=== PATIENT | female | born 1975 | race African-American/Black ===

== ENCOUNTER 2017-12-05 14:20 | Observation (INO) | payer OTHER ==
[2017-12-05] MEDS ORDERED: Morphine 4 MG/ML VIAL IVP STA ×2 (14:38→16:30)
[2017-12-05] MEDS ORDERED: Sodium Chloride 0.9% 1,000 ML IV STA (14:39)
[2017-12-05] MEDS ORDERED: Morphine 4 MG/ML VIAL ONE ×2 (14:50→17:07)
--- NOTE | 2017-12-05 15:25 | ED PDOC ---
HPI: Back Time Seen by Provider: 12/05/17 14:31 Chief Complaint (Nursing): Back Pain Chief Complaint (Provider): Back Pain History Per: Patient History/Exam Limitations: no limitations Current Symptoms Are (Timing): Still Present Quality Of Discomfort: Sharp (and shooting) Additional Complaint(s): 42 y/o female presents to the ED complaining of severe back pain from herniated disc from past 2 months, which has been treated with Tylenol. But since last 3 days she has cough and last night she coughed very hard and pain became worse. Notes that the pain is in the lower back radiating to the buttock and legs and is sharp and shooting. Reports using muscle relaxer and Tylenol without relief. States that her back doctor was going to do epidural tomorrow but she couldnt wait. She is unable to walk or get out of bed because of pain. Denies urinary or bowel incontinence, numbness or weakness in legs, fever or any further medical complaints. PMD: Sajan Mcdaniel MD Past Medical History Reviewed: Historical Data, Nursing Documentation, Vital Signs Vital Signs: Last Vital Signs Temp 98.0 F 12/05/17 14:23 Pulse 77 12/05/17 14:23 Resp 20 12/05/17 14:23 BP 116/88 12/05/17 14:23 Pulse Ox 96 12/05/17 14:23 - Medical History PMH: Hypothyroidism Other PMH: Herniated Disc - Surgical History Surgical History: (2) - Family History Family History: States: Unknown Family Hx - Social History Current smoker - smoking cessation education provided: No Alcohol: None Drugs: Denies - Allergies Allergies/Adverse Reactions: Allergies Allergy/AdvReac Type Severity Reaction Status Date / Time Penicillins Allergy RASH Verified 12/05/17 14:23 shellfish derived Allergy Verified 12/05/17 14:38 Review of Systems ROS Statement: Except As Marked, All Systems Reviewed And Found Negative (As per HPI, otherwise negative) ENT: Positive for: Other (Sore thrroat) Respiratory: Positive for: Cough Gastrointestinal: Negative for: Other (Urinary or bowel incontinence) Musculoskeletal: Positive for: Back Pain (Lower back pain) Neurological: Negative for: Weakness (in legs), Numbness (in legs) Physical Exam - Reviewed Nursing Documentation Reviewed: Yes Vital Signs Reviewed: Yes - Physical Exam Appears: Positive for: Uncomfortable, In Acute Distress Head Exam: Positive for: ATRAUMATIC, NORMOCEPHALIC Respiratory: Positive for: Normal Breath Sounds. Negative for: Accessory Muscle Use, Respiratory Distress Gastrointestinal/Abdominal: Positive for: Soft. Negative for: Tenderness, Mass , Distended, Guarding Back: Positive for: Decreased ROM, Muscle Spasm (RIGHT lumbar), Other (Unable to straighten leg at all for SLR due to pain, no saddle anesthesia) Extremity: Positive for: Other (RIGHT lower extremity: 5/5 EHL/PF/DF, light tought intact, 2+ DP/PT pulse) Lymphatic: Negative for: Adenopathy Neurologic/Psych: Positive for: Alert. Negative for: Motor/Sensory Deficits - ECG O2 Sat by Pulse Oximetry: 96 (RA) Pulse Ox Interpretation: Normal Medical Decision Making Medical Decision Making: Time: 14:38 Initial Impression: disc herniation, sciatica, acute and chronic back pain Plan: Urine Dipstick Urine Diazepam 5mg PO Ketorolac 30mg IV Morphine 4mg IVP Sodium chloride 1L IV IV Insertion (Saline lock) Scribe Attestation: Documented by Rolanda Johnson acting as a scribe for Lorene Morris MD. Scribe Attestation: All medical record entries made by the Scribe were at my direction and personally dictated by me. I have reviewed the chart and agree that the record accurately reflects my personal performance of the history, physical exam, medical decision making, and the department course for this patient. I have also personally directed, reviewed, and agree with the discharge instructions and disposition. Disposition - Clinical Impression Clinical Impression: Intractable back pain, Inability to walk Discussed With Dr.: Brian Roberts Doctor Will See Patient In The: Hospital Counseled Patient/Family Regarding: Studies Performed, Diagnosis - Disposition Disposition Time: 18:00 Condition: FAIR Forms: Danal d/b/a [employer] (Uzbek) - Pt Status Changed To: Hospital Disposition Of: Observation - POA Present On Arrival: Falls Or Trauma (risk)
[2017-12-05] MEDS ORDERED: Promethazine DM 12.5 mg-30 mg/10 ml Syrup PO STA (17:59)
[2017-12-05] MEDS ORDERED: Morphine 4 MG/ML VIAL IVP PRN (18:44)
[2017-12-05 19:02] LABS: SQUAMOUS EPITHIAL 5 /hpf (0-5); URINE BACTERIA FEW (<OCC); URINE BILIRUBIN NEGATIVE (NEGATIVE); URINE BLOOD MODERATE (NEGATIVE); URINE CLARITY CLOUDY (Clear); URINE COLOR RED (YELLOW); URINE GLUCOSE (UA) NEG (Normal); URINE LEUKOCYTE ESTERASE MOD Leu/uL (Negative); URINE NITRATE NEGATIVE (NEGATIVE); URINE PROTEIN 100 mg/dL (NEGATIVE); URINE UROBILINOGEN 0.2-1.0 mg/dL (0.2-1.0)
[2017-12-05] MEDS: Promethazine DM 12.5 mg-30 mg/10 ml Syrup PO PRN (21:44)
[2017-12-06 00:47] VITALS: PULSE 61
[2017-12-06] MEDS: Promethazine DM 12.5 mg-30 mg/10 ml Syrup PO PRN ×2 (05:17→10:44)
[2017-12-06 06:29] LABS: BASO % 0.7 % (0.0-2.0); EOS # 0.1 K/uL (0.0-0.7); EOS % 2.2 % (0.0-4.0); HEMOGLOBIN 12.8 g/dL (12.0-16.0); LYMPH # 2.4 K/uL (1.0-4.3); MEAN CELL VOLUME 88.4 fl (81.0-99.0); MEAN CORPUSCULAR HGB CONC 33.9 g/dL (33.0-37.0); MEAN PLATELET VOLUME 7.7 fl (7.2-11.7); MONO # 0.5 K/uL (0.0-0.8); MONO % 7.4 % (0.0-10.0); NEUT # 3.2 K/uL (1.8-7.0); NEUT % 51.7 % (50.0-75.0); NRBC % 0.1 % (0.0-0.0); RBC 4.27 Mil/uL (3.80-5.20); RED CELL DISTRIBUTION WIDTH 13.5 % (11.5-14.5); WHITE BLOOD COUNT 6.2 K/uL (4.8-10.8)
[2017-12-06] MEDS ORDERED: Levothyroxine 75 MCG TAB PO SCH ×2 (06:30→09:00)
[2017-12-06 06:40] LABS: ALB/GLOB RATIO 1.2 (1.0-2.1); ALBUMIN 3.5 g/dL (3.5-5.0); ALT/SGPT 31 U/L (9-52); AST/SGOT 18 U/L (14-36); BLOOD UREA NITROGEN 11 mg/dl (7-17); CALCIUM 8.7 mg/dL (8.4-10.2); GFR AFRICAN-AMERICAN > 60; GFR NON-AFRICAN AMERICAN > 60
--- NOTE | 2017-12-06 08:09 | CP.PCM.HP ---
History of Present Illness - History of Present Illness History of Present Illness: pt admitted for intractable low back pain w/ sciatica. has h/o same. being seen at [facility] and is for possible epidural today. no f/c n/v/d states cough exacerbated pain/numbness full rom of ble. distal pms intact. bw noted. mri 09/2017 Present on Admission - Present on Admission Any Indicators Present on Admission: No Review of Systems - Musculoskeletal Musculoskeletal: As Per HPI Past Patient History - Past Medical History & Family History Past Medical History?: Yes - Past Social History Smoking Status: Never Smoked - ENDOCRINE/METABOLIC Hx Hypothyroidism: Yes - MUSCULOSKELETAL/RHEUMATOLOGICAL Hx Falls: No - PSYCHIATRIC Hx Substance Use: No - ANESTHESIA Hx Anesthesia: No Meds Home Medications: Home Medication List Medication Instructions Recorded Confirmed Type Cyclobenzaprine [Flexeril] 10 mg PO TID PRN #30 tab 12/06/17 Rx Ibuprofen [Motrin Tab] 600 mg PO Q6 PRN #30 tab 12/06/17 Rx Promethazine DM [Phenergan DM 10 ml PO Q6 PRN #250 ml 12/06/17 Rx Syrup] oxyCODONE/Acetaminophen [Percocet 1 tab PO Q4 PRN #10 tab 12/06/17 Rx 5/325 mg Tab] Allergies/Adverse Reactions: Allergies Allergy/AdvReac Type Severity Reaction Status Date / Time Penicillins Allergy RASH Verified 12/05/17 14:23 shellfish derived Allergy Verified 12/05/17 14:38 Physical Exam - Constitutional Appears: Well, Non-toxic, No Acute Distress - Head Exam Head Exam: ATRAUMATIC, NORMAL INSPECTION, NORMOCEPHALIC - Eye Exam Eye Exam: EOMI, Normal appearance, PERRL Pupil Exam: NORMAL ACCOMODATION, PERRL - ENT Exam ENT Exam: Mucous Membranes Moist, Normal Exam - Neck Exam Neck exam: Positive for: Normal Inspection - Respiratory Exam Respiratory Exam: Clear to Auscultation Bilateral, NORMAL BREATHING PATTERN - Cardiovascular Exam Cardiovascular Exam: REGULAR RHYTHM, RRR, +S1, +S2 - GI/Abdominal Exam GI & Abdominal Exam: Normal Bowel Sounds, Soft. absent: Tenderness - Extremities Exam Extremities exam: Positive for: full ROM, normal capillary refill, normal inspection, pedal pulses present - Back Exam Back exam: FULL ROM, muscle spasm, NORMAL INSPECTION - Neurological Exam Neurological exam: Alert, CN II-XII Intact, Normal Gait, Oriented x3, Reflexes Normal - Psychiatric Exam Psychiatric exam: Normal Affect, Normal Mood - Skin Skin Exam: Dry, Intact, Normal Color, Warm Results - Vital Signs Recent Vital Signs: Last Vital Signs Temp 97.9 F 12/06/17 00:00 Pulse 61 12/06/17 00:00 Resp 19 12/06/17 00:00 BP 107/66 12/06/17 00:00 Pulse Ox 96 12/06/17 00:00 - Labs Result Diagrams: 12/06/17 05:25 12/06/17 05:25 Labs: Laboratory Results - last 24 hr 12/05/17 12/06/17 12/06/17 18:02 05:25 05:25 WBC 6.2 RBC 4.27 Hgb 12.8 Hct 37.7 MCV 88.4 MCH 30.0 MCHC 33.9 RDW 13.5 Plt Count 274 MPV 7.7 Neut % (Auto) 51.7 Lymph % (Auto) 38.0 Bertie % (Auto) 7.4 Eos % (Auto) 2.2 Baso % (Auto) 0.7 Neut # (Auto) 3.2 Lymph # (Auto) 2.4 Bertie # (Auto) 0.5 Eos # (Auto) 0.1 Baso # (Auto) 0.0 Sodium 140 Potassium 4.3 Chloride 107 Carbon Dioxide 25 Anion Gap 12 BUN 11 Creatinine 0.8 Est GFR ( Amer) > 60 Est GFR (Non-Af Amer) > 60 Random Glucose 97 Calcium 8.7 Total Bilirubin 0.4 AST 18 ALT 31 Alkaline Phosphatase 57 Total Protein 6.5 Albumin 3.5 Globulin 3.0 Albumin/Globulin Ratio 1.2 Urine Color Red Urine Clarity Cloudy Urine pH 7.0 Ur Specific [place] 1.012 Urine Protein 100 Urine Glucose (UA) Neg Urine Ketones Negative Urine Blood Moderate Urine Nitrate Negative Urine Bilirubin Negative Urine Urobilinogen 0.2-1.0 Ur Leukocyte Esterase Mod Urine RBC (Auto) 7209 H Urine Microscopic WBC 775 H Ur Squamous Epith Cells 5 Urine Bacteria Few H Assessment & Plan (1) DVT prophylaxis Assessment and Plan: scd and ae hose ambulation Status: Acute (2) Inability to walk Assessment and Plan: pt/ot hss today Status: Acute (3) Intractable back pain Assessment and Plan: morphine/toradol flexeril pt/ot Status: Acute Decision To Admit - Pt Status Changed To: Hospital Disposition Of: Observation - . Bed Request Type: Med/Surg Admitting Physician: Jennifer Hoang
[2017-12-06 08:28] VITALS: BP 108/74; RESP 18; TEMP 97.6; O2SAT 98
--- NOTE | 2017-12-06 10:24 | RAD ---
HISTORY: cough COMPARISON: No prior. FINDINGS: LUNGS: No active pulmonary disease. PLEURA: No significant pleural effusion identified, no pneumothorax apparent. CARDIOVASCULAR: Normal. OSSEOUS STRUCTURES: No significant abnormalities. VISUALIZED UPPER ABDOMEN: Normal. OTHER FINDINGS: None. IMPRESSION: No active disease.
[2017-12-06] MEDS ORDERED: Benzocaine/Menthol (Cepacol) Lozenge PO PRN (10:28)
--- NOTE | 2017-12-06 16:45 | CP.PCM.DIS ---
Provider - Provider Date of Admission: 12/05/17 18:42 Attending physician: Jennifer Hoang MD Time Spent in preparation of Discharge (in minutes): 15 Diagnosis - Discharge Diagnosis (1) DVT prophylaxis Status: Acute (2) Inability to walk Status: Acute (3) Intractable back pain Status: Acute Hospital Course - Lab Results Lab Results: Most Recent Lab Values WBC 6.2 K/uL (4.8-10.8) 12/06/17 05:25 RBC 4.27 Mil/uL (3.80-5.20) 12/06/17 05:25 Hgb 12.8 g/dL (12.0-16.0) 12/06/17 05:25 Hct 37.7 % (34.0-47.0) 12/06/17 05:25 MCV 88.4 fl (81.0-99.0) 12/06/17 05:25 MCH 30.0 pg (27.0-31.0) 12/06/17 05:25 MCHC 33.9 g/dL (33.0-37.0) 12/06/17 05:25 RDW 13.5 % (11.5-14.5) 12/06/17 05:25 Plt Count 274 K/uL (130-400) 12/06/17 05:25 MPV 7.7 fl (7.2-11.7) 12/06/17 05:25 Neut % (Auto) 51.7 % (50.0-75.0) 12/06/17 05:25 Lymph % (Auto) 38.0 % (20.0-40.0) 12/06/17 05:25 [place] % (Auto) 7.4 % (0.0-10.0) 12/06/17 05:25 Eos % (Auto) 2.2 % (0.0-4.0) 12/06/17 05:25 Baso % (Auto) 0.7 % (0.0-2.0) 12/06/17 05:25 Neut # (Auto) 3.2 K/uL (1.8-7.0) 12/06/17 05:25 Lymph # (Auto) 2.4 K/uL (1.0-4.3) 12/06/17 05:25 [place] # (Auto) 0.5 K/uL (0.0-0.8) 12/06/17 05:25 Eos # (Auto) 0.1 K/uL (0.0-0.7) 12/06/17 05:25 Baso # (Auto) 0.0 K/uL (0.0-0.2) 12/06/17 05:25 Sodium 140 mmol/l (132-148) 12/06/17 05:25 Potassium 4.3 MMOL/L (3.6-5.0) 12/06/17 05:25 Chloride 107 mmol/L (98-107) 12/06/17 05:25 Carbon Dioxide 25 mmol/L (22-30) 12/06/17 05:25 Anion Gap 12 (10-20) 12/06/17 05:25 BUN 11 mg/dl (7-17) 12/06/17 05:25 Creatinine 0.8 mg/dl (0.7-1.2) 12/06/17 05:25 Est GFR ( Amer) > 60 12/06/17 05:25 Est GFR (Non-Af Amer) > 60 12/06/17 05:25 Random Glucose 97 mg/dL (65-105) 12/06/17 05:25 Calcium 8.7 mg/dL (8.4-10.2) 12/06/17 05:25 Total Bilirubin 0.4 mg/dl (0.2-1.3) 12/06/17 05:25 AST 18 U/L (14-36) 12/06/17 05:25 ALT 31 U/L (9-52) 12/06/17 05:25 Alkaline Phosphatase 57 U/L (38-126) 12/06/17 05:25 Total Protein 6.5 G/DL (6.3-8.2) 12/06/17 05:25 Albumin 3.5 g/dL (3.5-5.0) 12/06/17 05:25 Globulin 3.0 gm/dL (2.2-3.9) 12/06/17 05:25 Albumin/Globulin Ratio 1.2 (1.0-2.1) 12/06/17 05:25 Urine Color Red (YELLOW) 12/05/17 18:02 Urine Clarity Cloudy (Clear) 12/05/17 18:02 Urine pH 7.0 (5.0-8.0) 12/05/17 18:02 Ur Specific [place] 1.012 (1.003-1.030) 12/05/17 18:02 Urine Protein 100 mg/dL (NEGATIVE) 12/05/17 18:02 Urine Glucose (UA) Neg mg/dL (Normal) 12/05/17 18:02 Urine Ketones Negative mg/dL (NEGATIVE) 12/05/17 18:02 Urine Blood Moderate (NEGATIVE) 12/05/17 18: Urine Nitrate Negative (NEGATIVE) 12/05/17 18: Urine Bilirubin Negative (NEGATIVE) 12/05/17 18: Urine Urobilinogen 0.2-1.0 mg/dL (0.2-1.0) 12/05/17 18:02 Ur Leukocyte Esterase Mod Chand[place]/uL (Negative) 12/05/17 18:02 Urine RBC (Auto) 7209 /hpf (0-3) H 12/05/17 18:02 Urine Microscopic WBC 775 /hpf (0-5) H 12/05/17 18:02 Ur Squamous Epith Cells 5 /hpf (0-5) 12/05/17 18:02 Urine Bacteria Few (<OCC) H 12/05/17 18:02 - Hospital Course Hospital Course: pain control, pt/ot Discharge Exam - Head Exam Head Exam: ATRAUMATIC, NORMAL INSPECTION, NORMOCEPHALIC Discharge Plan - Discharge Medications Prescriptions: Cyclobenzaprine [Flexeril] 10 mg PO TID PRN #30 tab PRN Reason: Muscle Spasm Ibuprofen [Motrin Tab] 600 mg PO Q6 PRN #30 tab PRN Reason: Pain, Moderate (4-7) oxyCODONE/Acetaminophen [Percocet 5/325 mg Tab] 1 tab PO Q4 PRN #10 tab PRN Reason: Pain, Severe (8-10) Promethazine DM [Phenergan DM Syrup] 10 ml PO Q6 PRN #250 ml PRN Reason: Cough - Follow Up Plan Condition: FAIR Disposition: HOME/ ROUTINE Instructions: Back Pain (GEN), Epidural Steroid Injection (DC) Additional Instructions: follow up at [facility] clinic follow up with [facility] in 2-3 days final dx-low abck pain, intractable. sciatica rx left for pt Referrals: Sajan Mcdaniel MD [Staff Provider] - Brian Roberts, KYUNG, BORDER INSPECTOR [Advanced Practice Nurse] -
[2017-12-07] MEDS ORDERED: Levothyroxine 75 MCG TAB PO SCH (06:30)
== END 2017-12-06 14:33 | disposition home or self-care (01) ==
LOC: H.ER 14:20 → H.ERHOLD 18:42 → H.MEDSURG1 20:47
PROVIDERS: ADMIT Family Medicine; ATTEND Family Medicine
DX: M54.40 Lumbago with sciatica, unspecified side (principal); R26.2 Difficulty in walking, not elsewhere classified; Z88.0 Allergy status to penicillin; E03.9 Hypothyroidism, unspecified; Z91.013 Allergy to seafood
CPT/HCPCS: 36415; 71045; 80053; 81003; 81025; 85025; 96374; 97116; 97162; 97166; 97530; 99285; G0378; G8978; G8979; G8987; G8988; J1885; J2270; J7040